=== PATIENT | male | born 1955 | race Caucasian/White ===

== ENCOUNTER → 2022-01-08 | Day surgery (SDC) | payer MEDICARE ==
[~2022-01-08] MED LIST: BRIMONIDINE TAR15 ML EYELF; CLARITIN10 M2 PO; RESTASIS 0.05%1 EACH OD; ROCKLATAN 0.022.5 ML OP
== END | disposition home or self-care (01) ==
LOC: OR 06:24
DX: Z12.11 Encounter for screening for malignant neoplasm of colon (principal); K63.5 Polyp of colon; K57.30 Diverticulosis of large intestine without perforation or abscess without bleeding; K64.1 Second degree hemorrhoids; E66.3 Overweight; Z68.25 Body mass index [BMI] 25.0-25.9, adult
CPT/HCPCS: J0461; J7040